=== PATIENT | female | born 1970 | race Caucasian/White ===

== ENCOUNTER 2017-09-29 19:07 | Emergency (ER) | payer SELFPAY ==
[~2017-09-29] VITALS: Ht 167.6 cm; Wt 81.7 kg
[~2017-09-29 19:07] MED LIST: ACET325; AMOX500 PO; Atarax10 MG; CODACE30 PO; CYCL10 PO; DIAZ5 PO; ERYT.5TO OP; FISH1000 PO; GABA100; IBU; IBUP600 PO; IBUP800 PO; LANS30EC; LORA1 PO; MELO7.5; MULVITA PO; MULVITMIND PO; Mobic15 MG PO; NAPR500 PO; Naprosyn500 MG PO; OMEP20ER; PREVPAC PO; PROBIOTIC1 EAC1 PO; Prozac20 MG; TRAM50; TRAM50 PO; Ultram50 MG PO; [UNRECOGNIZED DRUG - OTHER]; [UNRECOGNIZED DRUG - OTHER]
[2017-09-29 21:07] LABS: BASOPHILS ABSOLUTE AUTO 0.07 K/mm3 (0.00-0.23); BASOPHILS PERCENT AUTO 1 % (0-2); EOSINOPHILS PERCENT AUTO 3 % (0-6); Hematocrit 38.7 % (33.0-51.0); Hemoglobin 12.6 g/dL (11.5-16.0); IMMATURE GRAN ABSOLUTE AUTO 0.03 K/mm3 (0.00-0.10); IMMATURE GRAN PERCENT AUTO 0 % (0-1); LYMPHOCYTES ABSOLUTE AUTO 3.21 K/mm3 (0.84-5.20); LYMPHOCYTES PERCENT AUTO 36 % (21-46); MONOCYTES ABSOLUTE AUTO 0.44 K/mm3 (0.16-1.47); MONOCYTES PERCENT AUTO 5 % (4-13); Mean Corpuscular HGB 28.6 pg (26.0-34.0); Mean Corpuscular HGB Conc 32.6 g/dL (31.5-36.5); Mean Corpuscular Volume 88 fL (80-100); Mean Platelet Volume 10.7 fL (9.1-12.4); NEUTROPHILS ABSOLUTE AUTO 4.92 K/mm3 (1.96-9.15); NEUTROPHILS PERCENT AUTO 55 % (41-73); Platelet Count 333 K/mm3 (150-400); RDW Coefficient Variation 15.1 % (11.7-14.2); RDW Standard Deviation 48.8 fL (35.1-46.3); White Blood Cell Count 8.97 K/mm3 (4.00-11.30)
[2017-09-29 21:35] LABS: Anion Gap 10 mmol/L (6-16); CO2, Blood 22 mmol/L (21-32); Chloride, Blood 106 mmol/L (98-108); Potassium, Blood 3.8 mmol/L (3.5-5.5); Sodium, Blood 138 mmol/L (136-145)
[2017-09-29 21:36] LABS: Albumin, Blood 3.8 g/dL (3.4-5.0); Albumin/Globulin Ratio 0.9 (0.8-1.8); Alk Phos 88 U/L (50-136); Bilirubin, Total 0.3 mg/dL (0.1-1.0); Blood Urea Nitrogen 11 mg/dL (8-24); Bun/Creatinine Ratio 13.9 (12.0-20.0); Creatinine, Blood 0.79 mg/dL (0.40-1.00); Globulin, Blood 4.3 g/dL (2.2-4.0); Glomerular Filtration Rate >60 (60-); Glucose, Blood 97 mg/dL (70-99); Total Protein, Blood 8.1 g/dL (6.4-8.2)
[2017-09-29 21:37] LABS: Alanine Aminotransfer (ALT/SGP 47 U/L (12-78); Aspartate Aminotrans (AST/SGOT 28 U/L (12-37); Troponin I <0.015 ng/mL (0.000-0.040)
[2017-09-29] MEDS ORDERED: LIDO700A20 TOP (23:49)
[2017-09-29] MEDS ORDERED: Ultram50 MG PO (23:49)
== END 2017-09-30 00:20 | disposition home or self-care (01) ==
LOC: ER 19:07
PROVIDERS: Physician Assistant
DX: R07.9 Chest pain, unspecified (principal); M54.2 Cervicalgia; I48.2 Chronic atrial fibrillation; Z88.5 Allergy status to narcotic agent; Z88.8 Allergy status to other drugs, medicaments and biological substances; Z88.2 Allergy status to sulfonamides; Z79.899 Other long term (current) drug therapy; Z87.891 Personal history of nicotine dependence
CPT/HCPCS: 36415; 71046; 80053; 84484; 85025; 93005; 93010; 99283

== ENCOUNTER 2019-10-05 12:26 | Emergency (ER) | payer SELFPAY ==
[~2019-10-05] VITALS: Ht 167.6 cm; Wt 81.7 kg
[~2019-10-05 12:26] MED LIST changes: +LIDO700A20 TOP
[2019-10-05] MEDS ORDERED: Amoxicillin500 MG PO (13:10)
[2019-10-05] MEDS ORDERED: IBUP400 PO (13:15)
[2019-10-08] MEDS ORDERED: Cleocin HCl300 MG PO (12:03)
== END 2019-10-05 13:17 | disposition home or self-care (01) ==
LOC: ER 12:26
DX: K04.7 Periapical abscess without sinus (principal); K02.9 Dental caries, unspecified; F17.290 Nicotine dependence, other tobacco product, uncomplicated; Z88.5 Allergy status to narcotic agent; Z88.2 Allergy status to sulfonamides; Z88.8 Allergy status to other drugs, medicaments and biological substances; Z79.899 Other long term (current) drug therapy
CPT/HCPCS: 99282

== ENCOUNTER 2021-04-15 19:08 | Emergency (ER) | payer OTHER ==
[~2021-04-15] VITALS: Ht 167.6 cm; Wt 87.1 kg
[~2021-04-15 19:08] MED LIST changes: +Amoxicillin500 MG PO; +Cleocin HCl300 MG PO; +IBUP400 PO
[2021-04-15 19:50] LABS: BASOPHILS ABSOLUTE AUTO 0.02 K/mm3 (0.00-0.23); BASOPHILS PERCENT AUTO 0 % (0-2); EOSINOPHILS ABSOLUTE AUTO 0.01 K/mm3 (0.00-0.68); EOSINOPHILS PERCENT AUTO 0 % (0-6); IMMATURE GRAN ABSOLUTE AUTO 0.11 K/mm3 (0.00-0.10); IMMATURE GRAN PERCENT AUTO 1 % (0-1); LYMPHOCYTES ABSOLUTE AUTO 1.51 K/mm3 (0.84-5.20); LYMPHOCYTES PERCENT AUTO 16 % (21-46); MONOCYTES ABSOLUTE AUTO 0.23 K/mm3 (0.16-1.47); MONOCYTES PERCENT AUTO 3 % (4-13); Mean Corpuscular HGB 28.9 pg (26.0-34.0); Mean Corpuscular HGB Conc 33.3 g/dL (31.5-36.5); Mean Corpuscular Volume 87 fL (80-100); Mean Platelet Volume 11.1 fL (9.1-12.4); NEUTROPHILS PERCENT AUTO 80 % (41-73); Platelet Count 356 K/mm3 (150-400); RDW Coefficient Variation 15.1 % (11.7-14.2); RDW Standard Deviation 48.2 fL (35.1-46.3); White Blood Cell Count 9.38 K/mm3 (4.00-11.30)
[2021-04-15 20:15] LABS: Alanine Aminotransfer (ALT/SGP 53 U/L (12-78); Albumin, Blood 4.1 g/dL (3.4-5.0); Albumin/Globulin Ratio 0.9 (0.8-1.8); Alk Phos 76 U/L (50-136); Anion Gap 10 mmol/L (6-16); Aspartate Aminotrans (AST/SGOT 32 U/L (12-37); Bilirubin, Total 0.4 mg/dL (0.1-1.0); Blood Urea Nitrogen 7 mg/dL (8-24); Bun/Creatinine Ratio 8.1 (12.0-20.0); CO2, Blood 24 mmol/L (21-32); Calcium, Blood 9.3 mg/dL (8.5-10.1); Chloride, Blood 104 mmol/L (98-108); Creatinine, Blood 0.86 mg/dL (0.40-1.00); Globulin, Blood 4.6 g/dL (2.2-4.0); Glomerular Filtration Rate >60 (60-); Glucose, Blood 217 mg/dL (70-99); Potassium, Blood 3.8 mmol/L (3.5-5.5); Sodium, Blood 138 mmol/L (136-145); Total Protein, Blood 8.7 g/dL (6.4-8.2); Troponin I <0.015 ng/mL (0.000-0.040)
[2021-04-15 21:05] LABS: SARS-Cov-2 (COVID-19) PCR, MMC POSITIVE (NEGATIVE)
== END 2021-04-15 21:30 | disposition home or self-care (01) ==
LOC: ER 19:08
PROVIDERS: Physician Assistant
DX: U07.1 COVID-19 (principal); F41.9 Anxiety disorder, unspecified; F17.290 Nicotine dependence, other tobacco product, uncomplicated; Z88.5 Allergy status to narcotic agent; Z88.8 Allergy status to other drugs, medicaments and biological substances; Z88.2 Allergy status to sulfonamides; Z79.899 Other long term (current) drug therapy
CPT/HCPCS: 36415; 71260; 80053; 83690; 84484; 85025; 93005; 93010; 99284-25; Q9967; U0004

== ENCOUNTER 2021-10-28 05:10 | Emergency (ER) | payer OTHER ==
[~2021-10-28] VITALS: Ht 167.6 cm; Wt 70.3 kg
[2021-10-28 05:39] LABS: BASOPHILS ABSOLUTE AUTO 0.08 K/mm3 (0.00-0.23); BASOPHILS PERCENT AUTO 1 % (0-2); EOSINOPHILS ABSOLUTE AUTO 0.38 K/mm3 (0.00-0.68); EOSINOPHILS PERCENT AUTO 6 % (0-6); Hematocrit 42.2 % (33.0-51.0); Hemoglobin 13.7 g/dL (11.5-16.0); IMMATURE GRAN ABSOLUTE AUTO 0.01 K/mm3 (0.00-0.10); IMMATURE GRAN PERCENT AUTO 0 % (0-1); LYMPHOCYTES ABSOLUTE AUTO 1.84 K/mm3 (0.84-5.20); LYMPHOCYTES PERCENT AUTO 31 % (21-46); MONOCYTES ABSOLUTE AUTO 0.38 K/mm3 (0.16-1.47); MONOCYTES PERCENT AUTO 6 % (4-13); Mean Corpuscular HGB 27.4 pg (26.0-34.0); Mean Corpuscular HGB Conc 32.5 g/dL (31.5-36.5); Mean Corpuscular Volume 84 fL (80-100); Mean Platelet Volume 11.1 fL (9.1-12.4); NEUTROPHILS ABSOLUTE AUTO 3.21 K/mm3 (1.96-9.15); NEUTROPHILS PERCENT AUTO 54 % (41-73); Platelet Count 350 K/mm3 (150-400); RDW Coefficient Variation 15.2 % (11.7-14.2); RDW Standard Deviation 46.5 fL (35.1-46.3)
[2021-10-28 05:53] LABS: Alanine Aminotransfer (ALT/SGP 37 U/L (12-78); Albumin, Blood 2.8 g/dL (3.4-5.0); Albumin/Globulin Ratio 0.6 (0.8-1.8); Alk Phos 78 U/L (50-136); Anion Gap 6 mmol/L (6-16); Aspartate Aminotrans (AST/SGOT 35 U/L (12-37); Bilirubin, Total 0.3 mg/dL (0.1-1.0); Blood Urea Nitrogen 5 mg/dL (8-24); Bun/Creatinine Ratio 5.8 (12.0-20.0); CO2, Blood 26 mmol/L (21-32); Calcium, Blood 8.8 mg/dL (8.5-10.1); Chloride, Blood 108 mmol/L (98-108); Creatinine, Blood 0.87 mg/dL (0.40-1.00); Glomerular Filtration Rate >60 (60-); Glucose, Blood 98 mg/dL (70-99); Potassium, Blood 3.9 mmol/L (3.5-5.5); Sodium, Blood 140 mmol/L (136-145); Total Protein, Blood 7.8 g/dL (6.4-8.2)
== END 2021-10-28 08:59 | disposition home or self-care (01) ==
LOC: ER 05:10
PROVIDERS: Emergency Medicine
DX: R06.00 Dyspnea, unspecified (principal); R07.9 Chest pain, unspecified; Z87.891 Personal history of nicotine dependence; Z88.2 Allergy status to sulfonamides; Z88.8 Allergy status to other drugs, medicaments and biological substances
CPT/HCPCS: 36415; 71046; 71260; 80053; 83880; 84484; 85025; 93005; 93010; 99285-25; Q9967

== ENCOUNTER 2021-11-26 17:42 | Emergency (ER) | payer OTHER ==
[~2021-11-26] VITALS: Ht 167.6 cm; Wt 67.1 kg
[2021-11-26 18:25] LABS: BASOPHILS ABSOLUTE AUTO 0.09 K/mm3 (0.00-0.23); BASOPHILS PERCENT AUTO 1 % (0-2); EOSINOPHILS ABSOLUTE AUTO 0.36 K/mm3 (0.00-0.68); EOSINOPHILS PERCENT AUTO 3 % (0-6); Hematocrit 42.1 % (33.0-51.0); Hemoglobin 13.6 g/dL (11.5-16.0); IMMATURE GRAN ABSOLUTE AUTO 0.05 K/mm3 (0.00-0.10); IMMATURE GRAN PERCENT AUTO 0 % (0-1); LYMPHOCYTES ABSOLUTE AUTO 2.11 K/mm3 (0.84-5.20); LYMPHOCYTES PERCENT AUTO 18 % (21-46); MONOCYTES ABSOLUTE AUTO 0.52 K/mm3 (0.16-1.47); MONOCYTES PERCENT AUTO 4 % (4-13); Mean Corpuscular HGB 27.5 pg (26.0-34.0); Mean Corpuscular HGB Conc 32.3 g/dL (31.5-36.5); Mean Corpuscular Volume 85 fL (80-100); Mean Platelet Volume 11.5 fL (9.1-12.4); NEUTROPHILS PERCENT AUTO 74 % (41-73); Platelet Count 372 K/mm3 (150-400); RDW Coefficient Variation 15.7 % (11.7-14.2); RDW Standard Deviation 48.6 fL (35.1-46.3); Red Blood Cell Count 4.95 M/mm3 (3.80-5.20); White Blood Cell Count 12.03 K/mm3 (4.00-11.30)
[2021-11-26 18:44] LABS: Alanine Aminotransfer (ALT/SGP 20 U/L (12-78); Albumin, Blood 3.1 g/dL (3.4-5.0); Albumin/Globulin Ratio 0.6 (0.8-1.8); Alk Phos 78 U/L (50-136); Anion Gap 4 mmol/L (6-16); Aspartate Aminotrans (AST/SGOT 18 U/L (12-37); Bilirubin, Total 0.5 mg/dL (0.1-1.0); Blood Urea Nitrogen 8 mg/dL (8-24); Bun/Creatinine Ratio 10.1 (12.0-20.0); CO2, Blood 25 mmol/L (21-32); Calcium, Blood 9.1 mg/dL (8.5-10.1); Chloride, Blood 105 mmol/L (98-108); Globulin, Blood 5.3 g/dL (2.2-4.0); Glomerular Filtration Rate >60 (60-); Glucose, Blood 136 mg/dL (70-99); Potassium, Blood 3.7 mmol/L (3.5-5.5); Sodium, Blood 134 mmol/L (136-145); Total Protein, Blood 8.4 g/dL (6.4-8.2)
[2021-11-26] MEDS ORDERED: ALBU90OI INH (19:27)
[2021-11-26] MEDS ORDERED: SYMBICORT 160-4.6 GM INH (19:30)
[2021-11-26] MEDS ORDERED: Ventolin5 MG/1 ML INH (20:04)
[2021-11-26] MEDS ORDERED: Prednisone20 MG PO (20:04)
== END 2021-11-26 20:16 | disposition home or self-care (01) ==
LOC: ER 17:42
PROVIDERS: Physician Assistant
DX: J44.9 Chronic obstructive pulmonary disease, unspecified (principal); Z88.2 Allergy status to sulfonamides; Z88.8 Allergy status to other drugs, medicaments and biological substances; Z87.891 Personal history of nicotine dependence
CPT/HCPCS: 36415; 71045; 80053; 85025; 99285-25; J7512

== ENCOUNTER → 2022-03-30 | Outpatient (CLI) | payer OTHER ==
[~2022-03-30] MED LIST changes: +ALBU90OI INH; +Prednisone20 MG PO; +SYMBICORT 160-4.6 GM INH; +Ventolin5 MG/1 ML INH
[2022-04-01 15:09] LABS: HPV 16 Negative (Negative); HPV 18 Negative (Negative); HPV OTHER HR TYPES Negative (Negative)
== END | disposition home or self-care (01) ==
LOC: LAB 17:00 → LAB SHORT 17:00
PROVIDERS: Family Medicine
DX: Z12.4 Encounter for screening for malignant neoplasm of cervix (principal)
CPT/HCPCS: 87624; 88142

== ENCOUNTER 2023-06-23 22:08 | Observation (INO) | payer OTHER ==
[~2023-06-23] VITALS: Ht 167.6 cm; Wt 77.1 kg
[2023-06-23 22:40] LABS: BASOPHILS ABSOLUTE AUTO 0.12 K/mm3 (0.00-0.23); BASOPHILS PERCENT AUTO 1 % (0-2); EOSINOPHILS PERCENT AUTO 4 % (0-6); Hematocrit 35.5 % (33.0-51.0); Hemoglobin 10.6 g/dL (11.5-16.0); IMMATURE GRAN ABSOLUTE AUTO 0.06 K/mm3 (0.00-0.10); IMMATURE GRAN PERCENT AUTO 1 % (0-1); LYMPHOCYTES ABSOLUTE AUTO 2.73 K/mm3 (0.84-5.20); LYMPHOCYTES PERCENT AUTO 25 % (21-46); MONOCYTES ABSOLUTE AUTO 0.58 K/mm3 (0.16-1.47); MONOCYTES PERCENT AUTO 5 % (4-13); Mean Corpuscular HGB 24.9 pg (26.0-34.0); Mean Corpuscular HGB Conc 29.9 g/dL (31.5-36.5); Mean Corpuscular Volume 84 fL (80-100); Mean Platelet Volume 11.6 fL (9.1-12.4); NEUTROPHILS ABSOLUTE AUTO 6.92 K/mm3 (1.96-9.15); NEUTROPHILS PERCENT AUTO 64 % (41-73); Platelet Count 362 K/mm3 (150-400); RDW Coefficient Variation 16.7 % (11.7-14.2); RDW Standard Deviation 50.4 fL (35.1-46.3); Red Blood Cell Count 4.25 M/mm3 (3.80-5.20); White Blood Cell Count 10.81 K/mm3 (4.00-11.30)
[2023-06-23 22:53] LABS: Albumin, Blood 3.7 g/dL (3.4-5.0); Albumin/Globulin Ratio 0.9 (0.8-1.8); Bilirubin, Total 0.2 mg/dL (0.1-1.0); Bun/Creatinine Ratio 10.5 (12.0-20.0); Calcium, Blood 9.4 mg/dL (8.5-10.1); Creatinine, Blood 1.05 mg/dL (0.40-1.00); Globulin, Blood 4.2 g/dL (2.2-4.0); Potassium, Blood 4.1 mmol/L (3.5-5.5); Total Protein, Blood 7.9 g/dL (6.4-8.2)
[2023-06-24] VITALS (15 sets, daily range): BP systolic 107–143; BP diastolic 56–88
--- NOTE | 2023-06-24 05:44 | NUR ---
SHIFT SUMMARY/ADMISSION NOTE PATIENT ARRIVED TO UNIT FROM ED AT 01:52, ORIENTED TO UNIT, ROOM, AND CALL LIGHT FUNCTIONS. STATES Hx OF GALL STONES x1 YEAR AND NOW RIGHT UPPER QUAD PAIN HAS BECOME MORE FREQUENT AND SEVER. PLAN IS FOR LAP MAHESH IN AM. IS AWARE AND COMPLIANT WITH NPO STATUS. DENIES CURRENT PAIN, NO N/V/D, STATES WAS JUST MEDICATED IN ED. VSS ON RA. INDEPENDENT IN ROOM, SPOUSE AT BEDSIDE. NO ACUTE CHANGES NOTED OVERNIGHT. BED LOCKED IN LOWEST POSITION, CALL LIGHT WITHIN REACH.
--- NOTE | 2023-06-24 11:01 | NUR ---
PT HERE VIA [facility] FOR [facility] , Pre-Op teaching done. Pt verbalizes understanding. History, Chart, Medications and Allergies reviewed before start of procedure.Patient confirms NPO status and agrees with scheduled surgery.
--- NOTE | 2023-06-24 19:50 | NUR ---
PATIENT LEFT UNIT AT 1100, AND RETURNED TO ROOM FROM SURGERY AT 1400. PATIENT WITH NAUSEA AND VOMITING, MEDICATED IN PACU FOR NAUSEA AND ON THIS FLOOR WITH ZOFRAN. DR NUÑEZ NOTIFIED. PATIENT WAS ABLE TO TAKE A COUPLE BITES OF DINNER AND THEN FELT NAUSOUS AGAIN. EDUCATION PROVIDED ON ADVANCING SLOWLY WITH LIQUIDS/FULL LIQUID AND THEN SOLIDS. PATIENT V/U. BED IN LOW POSITION, CALL LIGHT IN REACH. PATIENT CALLS APPROPRIATELY.
--- NOTE | 2023-06-25 03:03 | NUR ---
SHIFT SUMMARY PT A&O X4, CALM AND COOPERATIVE WITH CARE. PT AMBULATED TO THE BATHROOM WITH SBA. PT VOIDED. PT STATES SOME ABDOMINAL DISCOMFORT BUT DENIES THE NEED FOR ANY PAIN MEDICATION AT THIS TIME. LR INFUISING @ 100 ML/HR. NO NAUSEA OR VOMITING THIS SHIFT. PT TOLERATING LIQUIDS AND HAD A SANDWICH WHICH SHE WAS ABLE TO HOLD DOWN. FOUR ABD LAP SITES C/D/I. BED KEPT IN LOWEST POSITION WITH CALL LIGHT WITHIN REACH. PT CALLS APPROPRIATELY.
[2023-06-25 03:43] VITALS: BP 128/55
[2023-06-25 08:14] VITALS: BP 117/62
[2023-06-25] MEDS ORDERED: IBUP600 PO (12:47)
[2023-06-25] MEDS ORDERED: TRAM50 PO (12:47)
--- NOTE | 2023-06-25 13:02 | NUR ---
DISCHARGE NOTE PT DISCHAGED TO HOME, MEDICATIONS CALLED IN BY DR. NUÑEZ. IV REMOVED. DISCHARGE INFORMATION AND EDUCATION PROVIDED. 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
== END 2023-06-25 13:05 | disposition home or self-care (01) ==
LOC: ER 22:08 → MEDS 22:09 → ENPENDDIS 06-24 12:42 → MEDS 06-25 13:05
PROVIDERS: Emergency Medicine; ADMIT Surgery
DX: K80.12 Calculus of gallbladder with acute and chronic cholecystitis without obstruction (principal); D64.9 Anemia, unspecified; Z87.891 Personal history of nicotine dependence; Z88.5 Allergy status to narcotic agent; Z88.2 Allergy status to sulfonamides; Z88.8 Allergy status to other drugs, medicaments and biological substances; Z79.899 Other long term (current) drug therapy
CPT/HCPCS: 76705; 80053; 83690; 85025; 88304; 94762; 96361; 96366; 96372; 96374; 96375; 96376; 99285-25; A9270; G0378; J0690; J1100; J1170; J1650; J1790; J1885; J2250; J2405; J2704; J2765; J3010; J7030; J7120

== ENCOUNTER 2024-06-21 09:01 | Day surgery (SDC) | payer OTHER ==
[2024-06-21] VITALS (13 sets, daily range): BP systolic 101–128; BP diastolic 55–81
[~2024-06-21] VITALS: Ht 167.6 cm; Wt 79.4 kg
[~2024-06-21 09:01] MED LIST changes: +Clindamycin 600mg in D5W 50 ML IV SCH; +Dexamethasone Sod Phos 10 MG/ML 1ML VIAL ONE; +ETOD500 PO; +FERSU300 PO; +FentaNYL Citrate 50 MCG/ML 5 ML Injection ONE; +Ketorolac Tromethamine 30mg Vial ONE; +Lactated Ringer's 1,000 ML IV SCH; +LevoFLOXacin 500MG/D5W 100ML 100 ML IV SCH; +Ondansetron HCl 2 MG / ML 2ML Vial ONE; +PANT40 PO; +Rocuronium Bromide 10 MG/ML 5ML Injection IV ONE; +Sugammadex Sodium 200 MG/2ML SDV (100 MG/ML) ONE; +propofoL 20 ML IV ONE
[2024-06-21] MEDS ORDERED: Scopolamine Hydrobromide Patch TOP ONE (09:55)
[2024-06-21] MEDS ORDERED: Lidocaine 1%-Epineph 1:100000 20 ML MDV INJ ONE (10:29)
[2024-06-21] MEDS ORDERED: Sugammadex Sodium 200 MG/2ML SDV (100 MG/ML) ONE (11:19)
[2024-06-21] MEDS ORDERED: Ibuprofen 400 MG Tab PO PRN (11:55)
[2024-06-21] MEDS ORDERED: Ondansetron HCl 2 MG / ML 2ML Vial ONE (11:55)
[2024-06-21] MEDS ORDERED: FLU VACC TS2024-25(6MOS UP)/PF 45 MCG/0.5 ML SYRINGE IM SCH (11:55)
[2024-06-21] MEDS ORDERED: HYDROmorphone HCl/Pf 1MG SYR ONE (11:56)
[2024-06-21] MEDS ORDERED: FentaNYL Citrate 50 MCG/ML 2 ML Injection ONE (11:56)
[2024-06-21] MEDS ORDERED: Ketorolac Tromethamine 30mg Vial ONE (11:57)
[2024-06-21] MEDS ORDERED: Acetaminophen 325 MG TABLET PO PRN (12:00)
[2024-06-21] MEDS ORDERED: Ketorolac Tromethamine 30mg Vial IV SCH (12:00)
[2024-06-21] MEDS ORDERED: FentaNYL Citrate 50 MCG/ML 2 ML Injection IV PRN (12:00)
[2024-06-21] MEDS ORDERED: OxyCODONE HCL 5 MG TAB PO PRN (12:00)
[2024-06-21] MEDS ORDERED: DiphenhydrAMINE HCL 25 MG Cap PO PRN (12:00)
[2024-06-21] MEDS ORDERED: Lactated Ringer's 1,000 ML IV SCH (12:00)
[2024-06-21] MEDS ORDERED: Ondansetron 4 MG TAB PO PRN (12:00)
[2024-06-21] MEDS ORDERED: Metoclopramide HCl 5MG / ML 2ML Vial ONE (12:11)
--- NOTE | 2024-06-21 13:13 | NUR ---
POST OP S/P LAVH. LAP SITES TO ABD X2 ARE CDI. SCANT VAGINAL BLEEDING NOTED ON ISIS PAD. URIBE IN PLACE AND HAS BLOOD TINGED URINE PRESENT, M.D. AWARE. PT NAUSEATED AND HAS BEEN MEDICATED IN PACU PRIOR TO ARRIVAL. PT REPORTS 6/10 CRAMPING PAIN, BUT DECLINES ALL NARCOTIC PAIN MEDICATIONS. KPAD TO ABD FOR COMFORT. POST OP VSS AND IN PROGRESS. ORIENTED TO ROOM, CALL LIGHT, AND TREATMENT PLAN. SPOUSE AT BEDSIDE FOR SUPPORT.
[2024-06-21 15:46] LABS: BASOPHILS ABSOLUTE AUTO 0.04 K/mm3 (0.00-0.23); BASOPHILS PERCENT AUTO 0 % (0-2); EOSINOPHILS ABSOLUTE AUTO 0.01 K/mm3 (0.00-0.68); EOSINOPHILS PERCENT AUTO 0 % (0-6); Hematocrit 36.4 % (33.0-51.0); Hemoglobin 12.4 g/dL (11.5-16.0); IMMATURE GRAN ABSOLUTE AUTO 0.04 K/mm3 (0.00-0.10); IMMATURE GRAN PERCENT AUTO 0 % (0-1); LYMPHOCYTES ABSOLUTE AUTO 0.75 K/mm3 (0.84-5.20); LYMPHOCYTES PERCENT AUTO 5 % (21-46); MONOCYTES ABSOLUTE AUTO 0.17 K/mm3 (0.16-1.47); MONOCYTES PERCENT AUTO 1 % (4-13); Mean Corpuscular HGB 30.3 pg (26.0-34.0); Mean Corpuscular HGB Conc 34.1 g/dL (31.5-36.5); Mean Corpuscular Volume 89 fL (80-100); Mean Platelet Volume 11.5 fL (9.1-12.4); NEUTROPHILS ABSOLUTE AUTO 15.16 K/mm3 (1.96-9.15); NEUTROPHILS PERCENT AUTO 94 % (41-73); Platelet Count 274 K/mm3 (150-400); RDW Coefficient Variation 14.2 % (11.7-14.2); RDW Standard Deviation 45.3 fL (35.1-46.3); Red Blood Cell Count 4.09 M/mm3 (3.80-5.20); White Blood Cell Count 16.17 K/mm3 (4.00-11.30)
--- NOTE | 2024-06-21 18:44 | NUR ---
SHIFT SUMMARY PT DOING WELL POST OP. NAUSEA HAS IMPROVED AND PT ABLE TO TOLERATE REGULAR DINNER. TORADOL FOR PAIN MANAGEMENT. URINE IN URIBE CATH APPEARS TO BE LESS BLOOD TINGED. PT ABLE TO GET OOB AND AMBULATE TO RESTROOM. MINIMAL VAGINAL BLEEDING NOTED ON [employer] PAD. VSS. CALL LIGHT WITHIN REACH.
--- NOTE | 2024-06-22 04:11 | NUR ---
SHIFT SUMMARY KHUSHBOO WAS ALERT AND FULLY ORIENTED ON ASSESMENT. LAP SITES ARE C/D/I PT DENIES NAUSEA, REPORTING LOW PAIN AND REFUSING PAIN MEDS. PT AMBULATING WITH SBA FOR SAFETY. NO LARGE CLOTS FOUND IN PADS, LIGHT-MEDIUM SANG SATURATION TO PADS. NO CHANGES TO PT CONDITION NOTED. NO ACUTE EVENTS TONIGHT.
[2024-06-22 04:17] VITALS: BP 94/57
[2024-06-22 07:29] VITALS: BP 96/57
[2024-06-22] MEDS ORDERED: IBU800 M1 PO (10:32)
[2024-06-22] MEDS ORDERED: ONDA4 PO (10:33)
[2024-06-22] MEDS ORDERED: Percocet 5-3251 EACH PO (10:34)
--- NOTE | 2024-06-22 12:12 | NUR ---
DISCHARGE PT VOIDING SPONTANEOUSLY WITHOUT DIFFICULTY. PT EDUCATED ON AND RECEIVED PRINTED DISCHARGE INSTRUCTIONS AND VERBALIZED AN UNDERSTANDING. HARD RX FOR MOTRIN/ZOFRAN/PERCOCET GIVEN TO PT. IV DC'D. PT LEFT WITH ALL PERSONAL BELONGINGS AND FAMILY AT SIDE TO TAKE HER HOME.
== END 2024-06-22 12:15 | disposition home or self-care (01) ==
LOC: ORSCMMR 09:01 → ORD 10:30 → ORSCMMR 10:30 → SURS 12:47 → ORSCMMR 06-22 12:15
PROVIDERS: Obstetrics & Gynecology
PROC: 0UT9FZZ Resection of Uterus, Via Natural or Artificial Opening With Percutaneous Endoscopic Assistance (ICD-10-PCS; principal; 2024-06-21 10:30)
DX: N92.1 Excessive and frequent menstruation with irregular cycle (principal); D63.8 Anemia in other chronic diseases classified elsewhere; D25.9 Leiomyoma of uterus, unspecified; N73.6 Female pelvic peritoneal adhesions (postinfective); K21.9 Gastro-esophageal reflux disease without esophagitis; Z79.899 Other long term (current) drug therapy; Z87.891 Personal history of nicotine dependence
CPT/HCPCS: 36415; 85025; 86850; 86900; 86901; 88307; 94762; A9270; J1100; J1171; J1885; J1956; J2405; J2704; J2765; J3010; J7120

== ENCOUNTER 2024-10-09 06:45 | Day surgery (SDC) | payer OTHER ==
[~2024-10-09] VITALS: Ht 167.6 cm; Wt 79.1 kg
[~2024-10-09 06:45] MED LIST changes: -Clindamycin 600mg in D5W 50 ML IV SCH; -Dexamethasone Sod Phos 10 MG/ML 1ML VIAL ONE; -FentaNYL Citrate 50 MCG/ML 5 ML Injection ONE; +IBU800 M1 PO; -Ketorolac Tromethamine 30mg Vial ONE; -Lactated Ringer's 1,000 ML IV SCH; -LevoFLOXacin 500MG/D5W 100ML 100 ML IV SCH; +ONDA4 PO; -Ondansetron HCl 2 MG / ML 2ML Vial ONE; +Percocet 5-3251 EACH PO; -Rocuronium Bromide 10 MG/ML 5ML Injection IV ONE; -Sugammadex Sodium 200 MG/2ML SDV (100 MG/ML) ONE; -propofoL 20 ML IV ONE
[2024-10-09] MEDS ORDERED: ETOD500 (07:10)
[2024-10-09] MEDS ORDERED: propofoL 50 ML IV ONE (07:47)
[2024-10-09] MEDS ORDERED: Lactated Ringer's 1,000 ML IV ONE ×3 (07:47→08:03)
[2024-10-09 09:12] VITALS: BP 112/80
--- NOTE | 2024-10-09 09:20 | NUR ---
10/09/24 [id number] JANEY SMITH RECEIVED REPORT FROM AMIE GAMA IN PT'S ROOM AFTER DEPARTING ENDO SUITE. PT PRIMARILY REPORTING PAIN IN R SHOULDER. PT IS AWAITING MRI FOR THAT SHOULDER AT THIS TIME. PT HAS HAD CONSULT WITH ORTHOPOEDIC REGARDING THIS. PT DENIES ABD PAIN, NAUSEA, SORENESS ASIDE FROM HER SHOULDER. PT PROVIDED WITH WARM PACK AND INSTRUCTED TO USE WARMTH AT HOME IF HELPFUL FOR THE REMAINDER OF TODAY. PT TOLERATED PO FLUIDS, TO ASSIST IN DRESSING. DC VIA .
== END 2024-10-09 09:21 | disposition home or self-care (01) ==
LOC: ORSCSDS 06:45
PROVIDERS: Internal Medicine Gastroenterology
PROC: 0DBP8ZX Excision of Rectum, Via Natural or Artificial Opening Endoscopic, Diagnostic (ICD-10-PCS; principal; 2024-10-09 08:15)
PROC: 0DB78ZX Excision of Stomach, Pylorus, Via Natural or Artificial Opening Endoscopic, Diagnostic (ICD-10-PCS; principal; 2024-10-09 08:15)
PROC: 0DBN8ZX Excision of Sigmoid Colon, Via Natural or Artificial Opening Endoscopic, Diagnostic (ICD-10-PCS; principal; 2024-10-09 08:15)
DX: R19.4 Change in bowel habit (principal); R10.13 Epigastric pain; D50.0 Iron deficiency anemia secondary to blood loss (chronic); K29.50 Unspecified chronic gastritis without bleeding; B96.81 Helicobacter pylori [H. pylori] as the cause of diseases classified elsewhere; D12.8 Benign neoplasm of rectum; K63.5 Polyp of colon; K21.9 Gastro-esophageal reflux disease without esophagitis; Z79.899 Other long term (current) drug therapy; Z86.16 Personal history of COVID-19; F17.210 Nicotine dependence, cigarettes, uncomplicated
CPT/HCPCS: 88305; 88342; J2704; J7120